=== PATIENT | female | born 1990 | race Caucasian/White ===

== ENCOUNTER 2021-12-11 11:54 | Emergency (ER) | payer MEDICAID ==
[~2021-12-11] VITALS: Ht 167.6 cm; Wt 45.8 kg
[2021-12-11 12:11] VITALS: BP_SYST 121
--- NOTE | 2021-12-11 12:15 | NUR ---
Placed in room 7 . Placed on surveillance system monitor, blood pressure machine and pulse oximeter. To gown for exam. Side rails up.
--- NOTE | 2021-12-11 12:20 | NUR ---
PT CAME IN FROM HOME C/O NON-RADIATING SUBSTERNAL CHEST PAIN X 2 WEEKS AND HX OF WERNER-DANLOS SYNDROME. PT IS AMBULATORY, AAOX4, VSS
--- NOTE | 2021-12-11 12:25 | NUR ---
ER DR. ORTIZ EXAMINING PT AT THE BEDSIDE
[2021-12-11 12:34] LABS: BASOPHILS % (AUTO) 0.5 % (0.0-2.0); EOSINOPHILS # (AUTO) 0.1 K/uL (0.0-0.4); EOSINOPHILS % (AUTO) 2.3 % (0.0-4.0); HEMATOCRIT 37.2 % (36-48); HEMOGLOBIN 12.7 g/dL (12.0-16.0); LYMPHOCYTES # (AUTO) 1.6 K/uL (1.0-5.5); MEAN CORPUSCULAR HEMOGLOBIN 31 pg (27-31); MEAN CORPUSCULAR HGB CONC 34 % (32-36); MEAN CORPUSCULAR VOLUME 92 fL (79.0-98.0); MONOCYTES # (AUTO) 0.5 K/uL (0.0-1.0); NEUTROPHILS # (AUTO) 3.7 K/uL (1.8-7.7); NEUTROPHILS % (AUTO) 61.2 % (40.0-70.0); PLATELET COUNT (AUTO) 164 K/uL (130-430); RED BLOOD CELL COUNT(AUTO) 4.05 MIL/uL (4.2-6.2); RED CELL DISTRIBUTION WIDTH 12.7 % (9.0-15.0)
[2021-12-11 13:04] LABS: CALCIUM 8.8 mg/dL (8.4-11.0); CREATININE 0.76 mg/dL (0.55-1.30); POTASSIUM 3.4 mmol/L (3.5-5.1)
[2021-12-11 13:18] LABS: ALBUMIN 4.6 g/dL (3.4-4.8); TOTAL BILIRUBIN 0.9 mg/dL (0.0-1.0)
--- NOTE | 2021-12-11 14:13 | NUR ---
DR. CEDENO AT THE BEDSIDE EXAMINING PT
--- NOTE | 2021-12-11 15:30 | NUR ---
PT RESTING IN BED, AOX4, NO DISTRESS NOTED
[2021-12-11 16:32] VITALS: BP_SYST 117
== END 2021-12-11 16:31 | disposition home or self-care (01) ==
LOC: SED 11:54
DX: R07.9 Chest pain, unspecified (principal); R53.1 Weakness
CPT/HCPCS: 36415; 71045; 71275; 76376; 80053; 81025; 84484; 85025; 93005; 99285; Q9967